=== PATIENT | male | born 1970 | race Caucasian/White ===

== ENCOUNTER 2018-07-09 10:35 | Emergency (ER) | payer MEDICARE, MEDICAID ==
[2018-07-09] MEDS: ALPRAZolam 0.5 MG TAB PO (12:45)
== END 2018-07-09 14:58 | disposition home or self-care (01) ==
LOC: M ED 10:35
DX: F43.0 Acute stress reaction (principal); F51.09 Other insomnia not due to a substance or known physiological condition; I10 Essential (primary) hypertension; E78.5 Hyperlipidemia, unspecified; J45.909 Unspecified asthma, uncomplicated; Z87.820 Personal history of traumatic brain injury; K21.9 Gastro-esophageal reflux disease without esophagitis; E03.9 Hypothyroidism, unspecified; F32.9 Major depressive disorder, single episode, unspecified; Z79.899 Other long term (current) drug therapy; Z88.5 Allergy status to narcotic agent
CPT/HCPCS: 71046